=== PATIENT | male | born 1945 | race Caucasian/White ===

== ENCOUNTER 2017-04-12 12:08 | Emergency (ER) | payer MEDICARE ==
[~2017-04-12] VITALS: Ht 167.6 cm; Wt 105.0 kg
[~2017-04-12 12:08] MED LIST: AMLO10TA2 PO; APIX5TAB PO; ASPI81CH CHEW; COLA100C3 PO; EMPA1TAB3 PO; FURO20TA PO; GABA300C5 PO; HYDR25TA35 PO; HYDR25TA5 PO; ISOS30TA3 PO; LANTUS2P SQ; LEVO75TA3 PO; LISI10TA3 PO; MULTTAB67 PO; NOVOLOGP2 SQ; ONDA8TAB8 SL; PLAV75TA29 PO; PROT40TA PO; TAMS5CAP PO; ZETI10TA5 PO
[2017-04-12 12:15] VITALS: BP 168/74; PULSE 70; RESP 18; TEMP 97.6; O2SAT 96
[2017-04-12] MEDS ORDERED: COLA100C PO (13:22)
[2017-04-12] MEDS ORDERED: LANTINJ SQ (13:26)
[2017-04-12] MEDS ORDERED: NOVORP2 SQ (13:27)
[2017-04-12] MEDS ORDERED: NOVOLOGP2 SQ (13:28)
[2017-04-12] MEDS ORDERED: BACT800T5 PO (13:32)
--- NOTE | 2017-04-12 13:32 | PD ---
HPI Chief Complaint: Skin Problem Time Seen by Provider: 13:00 Travel History International Travel<30 days: No Contact w/Intl Traveler<30days: No Traveled to known affect area: No History of Present Illness HPI 72-year-old male presents emergency department for evaluation of possible abscess or inflamed cyst to his left lower back 7 days. Patient reports he noticed a painful swollen area twisted left low back 7 days ago. Today while watching TV he felt drainage on his lower back which he reports was a blood- tinged pus drainage which prompted him to come into the emergency department for evaluation. He reports he's had previous abscess which was cultured out as MRSA several weeks ago. He denies fever or chills. He reports mild tenderness at the site of the abscess, nonradiating, constant. No aggravating or alleviating factors. 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) Cardiac Catheterization: Yes Cardiovascular Problems: Yes (htn; mi; low hr; bypass; stents) High Cholesterol: Yes Chest Pain: Yes Congestive Heart Failure: Yes Cerebrovascular Accident: No Coronary Artery Disease: Yes Diabetes: Yes Patient Takes Glucophage: No Diminished Hearing: No Endocrine: Yes Gastrointestinal Disorders: Yes (reflux) Genitourinary: No Hepatitis: No Hiatal Hernia: No Hypertension: Yes Immune Disorder: No Musculoskeletal: Yes (hx of neck surgery c5-c6 removed) Neurologic: No Psychiatric: No Reproductive: No Respiratory: No Migraines: No Myocardial Infarction: Yes (x 1) Radiation Therapy: No Seizures: No Sleep Apnea: Yes Thyroid Disease: Yes Tetanus Vaccination: < 5 Years Influenza Vaccination: Yes Past Surgical History Abdominal Surgery: Yes (RENAL CELLS CARCINOMA TO KIDNEYS ) AICD: No Arteriovenous Shunt: No Body Medical Devices: x1 cardiac stent Cardiac Surgery: Yes (5 vessel cardiac by-pass with 1 stent) Coronary Artery Bypass Graft: Yes (x 5 vessels) Coronary Stent: Yes (x 1) Ear Surgery: No Eye Surgery: Yes (deuce cataract removal with lense implants) Insulin Pump: No Joint Replacement: No Pacemaker: No Tonsillectomy: Yes Other Surgery: Yes Social History Alcohol Use: Yes (states daily mix drinks wine) Tobacco Use: No (former -quit 47 yrs ago smoked cigs) Substance Use: No Allergies-Medications (Allergen,Severity, Reaction): Coded Allergies: No Known Allergies (Verified , 04/12/17) Reported Meds & Prescriptions Reported Meds & Active Scripts Active Reported Novolog Inj (Insulin Aspart) 1,000 Unit/10 Ml Vial 0 SQ DIRECTED Sliding Scale as directed. Lantus Solostar Pen Inj (Insulin Glargine) 300 Unit/3 Ml Pen 1 Units SQ DAILY Colace (Docusate Sodium) 100 Mg Capsule 1 Cap PO DAILY Ondansetron Odt 8 Mg Tab 8 Mg SL Q8H PRN Jardiance (Empagliflozin) 25 Mg Tab 25 Mg PO DAILY Eliquis (Apixaban) 5 Mg Tab 5 Mg PO BID Multiple Vitamin 1 Tab 1 Tab PO DAILY Furosemide 20 Mg Tab 20 Mg PO BID Gabapentin 300 Mg Cap 300 Mg PO HS Lisinopril 10 Mg Tab 10 Mg PO HS Isosorbide Mononitrate ER (Isosorbide Mononitrate) 30 Mg Bony 30 Mg PO DAILY Flomax (Tamsulosin HCl) 0.4 Mg Cap 0.4 Mg PO HS Amlodipine (Amlodipine Besylate) 10 Mg Tab 10 Mg PO DAILY Zetia (Ezetimibe) 10 Mg Tab 10 Mg PO HS Protonix (Pantoprazole Sodium) 40 Mg Tab 40 Mg PO DAILY Levothyroxine (Levothyroxine Sodium) 75 Mcg Tab 75 Mcg PO DAILY Aspirin 81 Mg Chew 81 Mg CHEW DAILY Review of Systems Except as stated in HPI: all other systems reviewed are Neg General / Constitutional: No: Fever Eyes: No: Visual changes HENT: No: Headaches Cardiovascular: No: Chest Pain or Discomfort Respiratory: No: Shortness of Breath Gastrointestinal: No: Abdominal Pain Physical Exam Narrative GENERAL: Well-nourished, well-developed patient. SKIN: There is an indurated area in the [left low back] which measures about 2 cm cm in diameter. The areas indurated without fluctuance. There is a zone of inflammation around it but no lymphangitis. There is a small central opening losing weight purulent drainage. The drainage was expressed with gentle pressure. HEAD: Normocephalic. EYES: No scleral icterus. No injection or drainage. NECK: Supple, trachea midline. No JVD or lymphadenopathy. CARDIOVASCULAR: Regular rate and rhythm without murmurs, gallops, or rubs. RESPIRATORY: Breath sounds equal bilaterally. No accessory muscle use. GASTROINTESTINAL: Abdomen soft, non-tender, nondistended. MUSCULOSKELETAL: No cyanosis, or edema. BACK: Nontender without obvious deformity. No CVA tenderness. Data Data Last Documented VS Vital Signs Date Time Temp Pulse Resp B/P Pulse Ox O2 Delivery O2 Flow Rate FiO2 04/12/17 13:05 16 04/12/17 12:15 97.6 70 168/74 96 Orders Wound Culture And Gram Stain (04/12/17 13:22) MDM Medical Decision Making Medical Screen Exam Complete: Yes Emergency Medical Condition: Yes Differential Diagnosis Abscess, inflamed sebaceous cyst, cellulitis Narrative Course 72-year-old male with history of previous MRSA infection presents emergency department for evaluation of a possible cyst on his left low back. Patient reports the inflammation and pain has been present for 7 days. The area began to drain spontaneously today. He denies fever or chills. On exam he has a 2 cm indurated area to the left low back with a central opening draining purulent drainage. The area was expressed with gentle pressure. Incision and drainage does not need to be performed my opinion at this time. There is no fluctuance. Wound culture obtained. Patient be put on Bactrim antibiotics instructed faults primary care doctor. Diagnosis Primary Impression: Abscess Referrals: Primary Care Physician Additional Instructions: Take the antibiotics as prescribed. Keep the area covered with a clean dressing which be changed daily. Follow-up with her primary care doctor. Return to the emergency department if he developed new or worsening symptoms. Scripts Mupirocin Nasal Oint (Bactroban Nasal Oint)2% Oint1 Applic EACH NARE BID #1 TUBE Ref 0 For 5 days. Prov:Amy Becerra 04/12/17 Sulfamethoxazole-Trimethoprim (Bactrim DS)800-160 Mg Tab1 Tab PO BID #20 TAB Prov:Amy Becerra 04/12/17 Disposition: 01 DISCHARGE HOME Condition: Stable Amy Becerra Apr 12, 2017 13:32
[2017-04-12] MEDS ORDERED: BACTOIN EACH NARE (13:33)
== END 2017-04-12 13:44 | disposition home or self-care (01) ==
LOC: PHED 12:08
DX: L02.212 Cutaneous abscess of back [any part, except buttock and flank] (principal); A49.02 Methicillin resistant Staphylococcus aureus infection, unspecified site; Z86.14 Personal history of Methicillin resistant Staphylococcus aureus infection; I50.9 Heart failure, unspecified; I11.0 Hypertensive heart disease with heart failure; E11.9 Type 2 diabetes mellitus without complications; K21.9 Gastro-esophageal reflux disease without esophagitis; E78.00 Pure hypercholesterolemia, unspecified; I25.2 Old myocardial infarction; Z95.1 Presence of aortocoronary bypass graft; Z79.01 Long term (current) use of anticoagulants; Z79.82 Long term (current) use of aspirin
CPT/HCPCS: 86403; 87070; 87186; 87205; 99284

== ENCOUNTER 2017-05-04 16:57 | Observation (INO) | payer MEDICARE ==
[~2017-05-04] VITALS: Ht 167.6 cm; Wt 82.0 kg
[~2017-05-04 16:57] MED LIST changes: +BACT800T5 PO; +BACTOIN EACH NARE; +COLA100C PO; -COLA100C3 PO; -HYDR25TA35 PO; -HYDR25TA5 PO; +LANTINJ SQ; -LANTUS2P SQ; -PLAV75TA29 PO
[2017-05-04 17:18] VITALS: BP 188/88; PULSE 67; RESP 18; TEMP 98.6; O2SAT 94
[2017-05-04] MEDS ORDERED: SODIUM CHLOR 0.9% 1000 ML INJ 1,000 ML IV ONE (17:33)
[2017-05-04] MEDS ORDERED: SODIUM CHLORIDE 0.9% FLUSH 10 ML FLUSH IVF PRN (17:45)
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
[2017-05-04] MEDS ORDERED: LIDOCAINE 2%/EPINEPHrine 1:100,000 50ML MDV NERV BLOCK ONE (18:00)
[2017-05-04 18:04] VITALS: O2SAT 96
[2017-05-04] MEDS ORDERED: ONDANSETRON HCL 4 MG/2 ML VIAL ONE (18:12)
--- NOTE | 2017-05-04 18:14 | RADRPT ---
EXAM DATE/TIME: 05/04/2017 17:54 [facility] COMPARISON: CHEST SINGLE AP, July 02, 2016, 12:10. INDICATIONS : Palpitations. MEDICAL HISTORY : Myocardial infarction. Hypercholesterolemia. Congestive heart failure. Thyroiddisease. Hypertension. Anticoagulant therapy, Plavix. Sleep apnea. GERD. Renal cell carcinoma, left. Diabetes. SURGICAL HISTORY : CABG. ENCOUNTER: Initial ACUITY: 1 day PAIN SCORE: 0/10 LOCATION: Bilateral chest FINDINGS: Submaximal inspiration with elevation of both hemidiaphragms. Evidence of prior median sternotomy wi th intact sternal wire sutures. The heart is mildly enlarged, similar to prior. The lungs are clear . CONCLUSION: Submaximal inspiration. No infiltrates seen. Kush Estrada MD on May 04, 2017 at 18:11 Board Certified Radiologist. This report was verified electronically.
[2017-05-04] MEDS ORDERED: ONDANSETRON HCL 4 MG/2 ML VIAL IV PUSH ONE (18:15)
--- NOTE | 2017-05-04 18:29 | RADRPT ---
EXAM DATE/TIME: 05/04/2017 18:04 [facility] COMPARISON: CT BRAIN W/O CONTRAST, July 02, 2016, 13:39. INDICATIONS : Syncopal episode. RADIATION DOSE: 51.02 CTDIvol (mGy) MEDICAL HISTORY : Cardiovascular disease. Congestive heart failure. Diabetes renal cell carcinoma SURGICAL HISTORY : CABG Left kidney ENCOUNTER: Initial ACUITY: 1 day PAIN SCALE: 0/10 LOCATION: cranial TECHNIQUE: Multiple contiguous axial images were obtained of the head. Using automated exposure control and adj ustment of the mA and/or kV according to patient size, radiation dose was kept as low as reasonably a chievable to obtain optimal diagnostic quality images. DICOM format image data is available electro nically for review and comparison. FINDINGS: CEREBRUM: The ventricles are normal for age. No evidence of midline shift, mass lesion, hemorrhage or acute in farction. No extra-axial fluid collections are seen. Cavum septal pellucidum. POSTERIOR FOSSA: The cerebellum and brainstem are intact. The 4th ventricle is midline. The cerebellopontine angle i s unremarkable. EXTRACRANIAL: There is mild soft tissue swelling in the supraorbital region with small collection of gas. No abnor mality seen the adjacent bony orbit. SKULL: The calvaria is intact. No evidence of skull fracture. CONCLUSION: 1. Mild right supraorbital soft tissue swelling with small collection of gas. No fracture seen. 2. No acute findings in the brain. Kush Estrada MD on May 04, 2017 at 18:25 Board Certified Radiologist. This report was verified electronically.
--- NOTE | 2017-05-04 18:38 | PD ---
Physical Exam Date Seen by Provider: May 04, 2017 Time Seen by Provider: 18:34 Narrative I was asked by Dr. Gaytan to see this patient for laceration to the right brow. Please see my procedure note. Data Data Last Documented VS Vital Signs Date Time Temp Pulse Resp B/P (MAP) Pulse Ox O2 Delivery O2 Flow Rate FiO2 05/04/17 18:04 96 Room Air 05/04/17 17:18 98.6 67 18 Orders Orders Electrocardiogram (05/04/17 17:33) Complete Blood Count With Diff (05/04/17 17:33) Comprehensive Metabolic Panel (05/04/17 17:33) Magnesium (Mg) (05/04/17 17:33) Troponin I (05/04/17 17:33) Chest, Single Ap (05/04/17 17:33) Ct Brain W/O Iv Contrast(Rout) (05/04/17 17:33) Ecg Monitoring (05/04/17 17:33) Iv Access Insert/Monitor (05/04/17 17:33) Oximetry (05/04/17 17:33) Sodium Chloride 0.9% Flush (Ns Flush) (05/04/17 17:45) Sodium Chlor 0.9% 1000 Ml Inj (Ns 1000 M (05/04/17 17:33) Lidocai-Epi 2%-1:100,000 Inj (Xylocaine- (05/04/17 18:00) Ondansetron Inj (Zofran Inj) (05/04/17 18:15) Ondansetron Inj (Zofran Inj) (05/04/17 18:12) Labs Laboratory Tests Test 05/04/17 17:40 [facility] Medical Record Reviewed: Yes Supervised Visit with MEGHNA: Yes Procedures Procedure Narrative LACERATION LOCATION: Right lateral brow LENGTH: 3.5 cm NUMBER OF STITCHES/SARAVANAN: 1 vertical mattress, 3 interrupted horizontal mattress, one interrupted simple sutures REPAIR: The area of the laceration was prepped with Betadine and sterilely draped. The laceration was infiltrated with 4 mL was 1% lidocaine. The wound was copiously irrigated and explored without evidence of foreign body, tendon injury or neurovascular injury. The wound was closed using 5-0 Prolene. This was a single layer repair. Antibiotic ointment was applied. The patient was advised to keep the wound clean and dry. Patient to have sutures remain for at least 7 days. Patient tolerated the procedure well. Condition: Stable Doc Mendez May 04, 2017 18:38
[2017-05-04 18:39] LABS: AUTOMATED NEUTROPHIL # 5.3 TH/MM3 (1.8-7.7); BASOPHIL # 0.1 TH/MM3 (0-0.2); EOSINOPHIL # 0.1 TH/MM3 (0-0.4); HEMATOCRIT 37.7 % (39.0-51.0); HEMO FLAGS DIFF FINAL; LYMPH % 25.7 % (9.0-44.0); LYMPHOCYTE # 2.2 TH/MM3 (1.0-4.8); MEAN CELL VOLUME 93.8 FL (80.0-100.0); MEAN CORPUSCULAR HEMOGLOBIN 32.2 PG (27.0-34.0); MEAN CORPUSCULAR HGB CONC 34.4 % (32.0-36.0); MONO % 9.9 % (0.0-8.0); NEUT % 62.4 % (16.0-70.0); PLATELET COUNT 184 TH/MM3 (150-450); RED BLOOD COUNT 4.02 MIL/MM3 (4.50-5.90); RED CELL DISTRIBUTION WIDTH 13.3 % (11.6-17.2); WHITE BLOOD COUNT 8.5 TH/MM3 (4.0-11.0)
[2017-05-04 18:44] VITALS: BP 210/81; PULSE 65; RESP 18; O2SAT 97
[2017-05-04 18:59] LABS: AST (GOT) 29 U/L (15-37); BICARBONATE 26.6 MEQ/L (21.0-32.0); BLOOD UREA NITROGEN 30 MG/DL (7-18); GLOMERULAR FILTRATION RATE 36 ML/MIN (>89); MAGNESIUM 2.1 MG/DL (1.5-2.5)
[2017-05-04 19:00] LABS: ALT (GPT) 35 U/L (12-78)
--- NOTE | 2017-05-04 19:36 | PD ---
Physical Exam Narrative General: The patient is well-developed well-nourished male in no acute distress. Head and Neck exam: Head is normocephalic, evidence of trauma to the right side of the forehead with a laceration that has been sutured noted above the right eyebrow. Eyes: EOMI, pupils are equal round and reactive to light. Nose: Midline septum with pink mucous membranes Mouth: Dentition unremarkable. Moist mucus membranes. Posterior oropharynx is not erythematous. No tonsillar hypertrophy. Uvula midline. Airway patent. Neck: No palpable lymphadenopathy. No nuchal rigidity. No thyromegaly. Cardiovascular: Regular rate and rhythm without murmurs, gallops, or rubs. No pulse deficit to the extremities and simultaneous auscultation and palpation of his radial artery. Lungs: Clear to auscultation bilaterally. No wheezes, rhonchi, or rales. Abdomen: Soft, without tenderness to palpation in all 4 quadrants of the abdomen. No guarding, rebound, or rigidity. Normal bowel sounds are audible. No tenderness on palpation of McBurney's point. Extremities: No Clubbing or cyanosis noted. The patient has trace to 1+ pitting edema bilateral lower extremities. 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 Back: No costovertebral angle tenderness to palpation. Neurologic Exam: Cranial nerves 2-12 were intact on exam. Strength is 5/5 in all 4 extremities. No sensory deficits noted. Skin Exam: No rash noted. Data Data Last Documented VS Vital Signs Date Time Temp Pulse Resp B/P (MAP) Pulse Ox O2 Delivery O2 Flow Rate FiO2 05/04/17 19:59 68 20 170/71 (104) 98 Room Air 05/04/17 17:18 98.6 Orders Orders Electrocardiogram (05/04/17 17:33) Complete Blood Count With Diff (05/04/17 17:33) Comprehensive Metabolic Panel (05/04/17 17:33) Magnesium (Mg) (05/04/17 17:33) Troponin I (05/04/17 17:33) Chest, Single Ap (05/04/17 17:33) Ct Brain W/O Iv Contrast(Rout) (05/04/17 17:33) Ecg Monitoring (05/04/17 17:33) Iv Access Insert/Monitor (05/04/17 17:33) Oximetry (05/04/17 17:33) Sodium Chloride 0.9% Flush (Ns Flush) (05/04/17 17:45) Sodium Chlor 0.9% 1000 Ml Inj (Ns 1000 M (05/04/17 17:33) Lidocai-Epi 2%-1:100,000 Inj (Xylocaine- (05/04/17 18:00) Ondansetron Inj (Zofran Inj) (05/04/17 18:15) Ondansetron Inj (Zofran Inj) (05/04/17 18:12) Alcohol (Ethanol) (05/04/17 18:49) Admit Order (Ed Use Only) (05/04/17 20:11) Labs Laboratory Tests Test 05/04/17 17:40 White Blood Count 8.5 TH/MM3 Red Blood Count 4.02 MIL/MM3 Hemoglobin 12.9 GM/DL Hematocrit 37.7 % Mean Corpuscular Volume 93.8 FL Mean Corpuscular Hemoglobin 32.2 PG Mean Corpuscular Hemoglobin Concent 34.4 % Red Cell Distribution Width 13.3 % Platelet Count 184 TH/MM3 Mean Platelet Volume 9.8 FL Neutrophils (%) (Auto) 62.4 % Lymphocytes (%) (Auto) 25.7 % Monocytes (%) (Auto) 9.9 % Eosinophils (%) (Auto) 1.0 % Basophils (%) (Auto) 1.0 % Neutrophils # (Auto) 5.3 TH/MM3 Lymphocytes # (Auto) 2.2 TH/MM3 Monocytes # (Auto) 0.8 TH/MM3 Eosinophils # (Auto) 0.1 TH/MM3 Basophils # (Auto) 0.1 TH/MM3 CBC Comment DIFF FINAL Differential Comment Blood Urea Nitrogen 30 MG/DL Creatinine 1.85 MG/DL Random Glucose 217 MG/DL Total Protein 6.2 GM/DL Albumin 2.5 GM/DL Calcium Level 8.1 MG/DL Magnesium Level 2.1 MG/DL Alkaline Phosphatase 73 U/L Aspartate Amino Transf (AST/SGOT) 29 U/L Alanine Aminotransferase (ALT/SGPT) 35 U/L Total Bilirubin 0.2 MG/DL Sodium Level 139 MEQ/L Potassium Level 4.4 MEQ/L Chloride Level 105 MEQ/L Carbon Dioxide Level 26.6 MEQ/L Anion Gap 7 MEQ/L Estimat Glomerular Filtration Rate 36 ML/MIN Troponin I 0.02 NG/ML Ethyl Alcohol Level 176 MG/DL [facility] Medical Record Reviewed: Yes Supervised Visit with MEGHNA: No Interpretation(s) Last Impressions Head CT 05/04/171732 Signed Impressions: Service Date/Time: Thursday, May 04, 2017 18:04 - CONCLUSION: 1. Mild right supraorbital soft tissue swelling with small collection of gas. No fracture seen. 2. No acute findings in the brain. Kush Estrada MD Chest X-Ray 05/04/171732 Signed Impressions: Service Date/Time: Thursday, May 04, 2017 17:54 - CONCLUSION: Submaximal inspiration. No infiltrates seen. Kush Estrada MD Narrative Course During the course of the patients emergency department visit, the patients history, examination, and differential diagnosis were reviewed with the patient. The patient had IV access obtained and blood work sent for analysis. The patient's case is checked out to me by Dr. Gaytan at the conclusion of his shift. Please see his complete history and physical. The patient is a 72-year- old male who presents to [facility] emergency Department with a history of syncopal event prior to arrival. The patient presents with an ECG that shows what appears to be a first-degree heart block heart rate of 63, QRS duration is 148 ms, QTC 416 ms, right bundle branch block is noted. The patient does have a history of complete heart block which resolved after medication changes previously. The patient was initially provided Zofran 4 mg IV, normal saline 1 L IV fluid bolus. The patients laboratory studies were reviewed and remarkable for a CBC that shows a white count of 8.5, hemoglobin 12.9, platelets 184 with 9.9 monocytes. CMP is remarkable for a BUN of 30, creatinine 1.85, glucose 217, albumin 2.5 this is compared to his prior renal function studies done on July 07, 2016. The patient apparently does have a history of renal insufficiency with his last BUN 26, creatinine 1.67. Patient's alcohol level is 176. Radiology studies were reviewed and remarkable for a CT scan of the brain that shows a mild right supraorbital soft tissue swelling with small collection of gas, no fracture seen. No acute findings in the brain. Chest x-ray shows no acute abnormality, submaximal inspiratory effort, no infiltrates seen. The patients results were discussed with the patient, including the plan of care. I explained that further testing and/ or monitoring is indicated based on the patients history, examination, and/ or laboratory findings. Therefore, I recommended admission for additional evaluation. The patient expressed understanding and was agreeable with this plan. The patient was admitted to the hospital in stable condition and sent to a bed under the care of the [facility] service for Physician Communication Physician Communication The patient's case was discussed with Dr. Dolan who did agree to admit the patient for further evaluation and treatment at this time. Diagnosis Primary Impression: Syncope and collapse Additional Impressions: Alcohol intoxication Qualified Codes: F10.929 - Alcohol use, unspecified with intoxication, unspecified Head injury Qualified Codes: S09.90XA - Unspecified injury of head, initial encounter Admitting Information Admitting Physician Requests: Admit Condition: Stable Aure Ritter MD May 04, 2017 19:36
[2017-05-04 19:45] LABS: ALKALINE PHOSPHATASE 73 U/L (45-117); ANION GAP 7 MEQ/L (5-15); CHLORIDE 105 MEQ/L (98-107); POTASSIUM 4.4 MEQ/L (3.5-5.1); SODIUM (NA) 139 MEQ/L (136-145); TOTAL BILIRUBIN ADULT 0.2 MG/DL (0.2-1.0)
[2017-05-04 19:59] VITALS: BP 170/71; PULSE 68; RESP 20; O2SAT 98
[2017-05-04] MEDS ORDERED: SODIUM CHLORIDE 0.9% FLUSH 10 ML FLUSH IV FLUSH PRN (20:30)
[2017-05-04] MEDS ORDERED: NALOXONE HCL 0.4 MG/ML AMP IV PRN (20:30)
[2017-05-04] MEDS: SODIUM CHLORIDE 0.9% FLUSH 10 ML FLUSH IV FLUSH SCH (21:08)
[2017-05-04] MEDS ORDERED: ACETAMINOPHEN 325 MG TAB PO PRN (22:00)
[2017-05-04 22:09] VITALS: BP 187/84; PULSE 69; RESP 19; TEMP 98.2; O2SAT 97
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
[2017-05-05] VITALS (8 sets, daily range): BP systolic 174–218; BP diastolic 70–96; PULSE 63–92; RESP 18–20; TEMP 97.8–98.3; O2SAT 95–97
[2017-05-05] MEDS ORDERED: LISINOPRIL 20 MG TAB PO ONE (01:00)
[2017-05-05] MEDS ORDERED: ACETAMINOPHEN/HYDROcodone 325 MG/5 MG TAB PO PRN (01:00)
[2017-05-05] MEDS ORDERED: LEVOTHYROXINE SODIUM 75 MCG TAB PO SCH (06:00)
[2017-05-05] MEDS ORDERED: PANTOPRAZOLE SOD 40 MG DELAYED RELEASE TAB PO SCH (06:00)
[2017-05-05] MEDS: SODIUM CHLORIDE 0.9% FLUSH 10 ML FLUSH IV FLUSH SCH (08:11)
[2017-05-05] MEDS ORDERED: APIXABAN 5 MG TABLET PO SCH (09:00)
[2017-05-05] MEDS ORDERED: ISOSORBIDE MONONITRATE 30 MG TAB PO SCH (09:00)
[2017-05-05] MEDS ORDERED: ASPIRIN 81 MG CHEW TAB CHEW SCH (09:00)
[2017-05-05] MEDS ORDERED: FUROSEMIDE 20 MG TAB PO SCH (09:00)
[2017-05-05] MEDS ORDERED: DEXTROSE 50% IN WATER 50 ML VIAL(D50) IV PRN (09:45)
[2017-05-05] MEDS ORDERED: GLUCAGON 1 MG/ML VIAL OTHER PRN (09:45)
[2017-05-05] MEDS ORDERED: INSULIN ASPART SUPPLEMENTAL SCALE SQ SCH (11:00)
[2017-05-05 12:38] LABS: AUTOMATED NEUTROPHIL # 7.8 TH/MM3 (1.8-7.7); BASOPHIL # 0.1 TH/MM3 (0-0.2); BASOPHIL % 0.7 % (0.0-2.0); EOSINOPHIL # 0.1 TH/MM3 (0-0.4); EOSINOPHIL % 0.5 % (0.0-4.0); HEMATOCRIT 41.7 % (39.0-51.0); HEMO FLAGS DIFF FINAL; LYMPH % 17.6 % (9.0-44.0); MEAN CELL VOLUME 94.2 FL (80.0-100.0); MEAN CORPUSCULAR HEMOGLOBIN 30.9 PG (27.0-34.0); MEAN CORPUSCULAR HGB CONC 32.8 % (32.0-36.0); MONO % 11.9 % (0.0-8.0); NEUT % 69.3 % (16.0-70.0); PLATELET COUNT 220 TH/MM3 (150-450); RED BLOOD COUNT 4.43 MIL/MM3 (4.50-5.90); RED CELL DISTRIBUTION WIDTH 13.6 % (11.6-17.2); WHITE BLOOD COUNT 11.2 TH/MM3 (4.0-11.0)
--- NOTE | 2017-05-05 12:44 | EKG ---
Date Performed: 05/05/2017 Time Performed: 06:30:27 PTAGE: 72 years EKG: Sinus rhythm WITH FIRST DEGREE AV BLOCK RIGHT BUNDLE BRANCH BLOCK ABNORMAL ECG PREVIOUS TRACING : 05/05/2017 00.39 DOCTOR: Jan Ray Interpretating Date/Time 05/05/2017 12:42:18
--- NOTE | 2017-05-05 12:48 | EKG ---
Date Performed: 05/05/2017 Time Performed: 00:39:47 PTAGE: 72 years EKG: Sinus rhythm WITH 2ND DEGREE AV BLOCK, MOBITZ TYPE I (WENCKEBACH) RIGHT BUNDLE BRANCH BLOCK ABNORMAL ECG PREVIOUS TRACING : 05/04/2017 17.43 DOCTOR: Jan Ray Interpretating Date/Time 05/05/2017 12:44:24
--- NOTE | 2017-05-05 12:53 | EKG ---
Date Performed: 05/04/2017 Time Performed: 17:43:45 PTAGE: 72 years EKG: UNCERTAIN REGULAR RHYTHM RIGHT BUNDLE BRANCH BLOCK MODERATE T-WAVE ABNORMALITY, CONSIDER LA TERAL ISCHEMIA ABNORMAL ECG PREVIOUS TRACING : 07/02/2016 11.41 DOCTOR: Jan Ray Interpretating Date/Time 05/05/2017 12:47:50
[2017-05-05 12:58] LABS: BICARBONATE 27.6 MEQ/L (21.0-32.0); POTASSIUM 4.6 MEQ/L (3.5-5.1)
--- NOTE | 2017-05-05 13:41 | HHI.PR ---
Subjective Remarks Follow up for syncope, fall. Patient is doing well. No chest pain, SOB, fever, chills. No further syncopal episodes. Wants to go home. Objective Vitals Vital Signs Date Time Temp Pulse Resp B/P (MAP) Pulse Ox O2 Delivery O2 Flow Rate FiO2 05/05/17 13:15 175/70 (105) 05/05/17 09:30 180/76 (110) Automatic Cuff 05/05/17 09:16 98.3 63 20 218/88 (131) 97 05/05/17 08:15 63 05/05/17 04:25 98.3 91 18 174/82 (112) 95 05/05/17 04:20 92 05/05/17 02:37 18 05/05/17 00:21 75 05/05/17 00:10 97.8 79 18 214/96 (135) 95 05/04/17 22:09 98.2 69 19 187/84 (118) 97 05/04/17 21:16 05/04/17 19:59 68 20 170/71 (104) 98 Room Air 05/04/17 18:44 65 18 210/81 (124) 97 Room Air 05/04/17 18:04 96 Room Air 05/04/17 17:18 98.6 67 18 188/88 (121) 94 Room Air 05/04/17 17:18 73 18 94 Room Air I/O 05/04/17 05/04/17 05/04/17 05/05/17 05/05/17 05/05/17 06:59 14:59 22:59 06:59 14:59 22:59 Intake Total 1000 ml Output Total 350 ml Balance 650 ml Intake IV Total 1000 ml Output Urine Total 350 ml # Voids 2 Result Diagram: 05/05/17 1200 05/05/17 1200 Imaging Last Impressions Head CT 05/04/171732 Signed Impressions: Service Date/Time: Thursday, May 04, 2017 18:04 - CONCLUSION: 1. Mild right supraorbital soft tissue swelling with small collection of gas. No fracture seen. 2. No acute findings in the brain. Kush Estrada MD Chest X-Ray 05/04/171732 Signed Impressions: Service Date/Time: Thursday, May 04, 2017 17:54 - CONCLUSION: Submaximal inspiration. No infiltrates seen. Kush Estrada MD Objective Remarks GENERAL: AOX3, NAD SKIN: Warm and dry. HEAD: Normocephalic.A small laceration on the right side. EYES: No scleral icterus. No injection or drainage. NECK: Supple, trachea midline. No JVD or lymphadenopathy. CARDIOVASCULAR: Regular rate and rhythm without murmurs, gallops, or rubs. RESPIRATORY: Breath sounds equal bilaterally. No accessory muscle use. GASTROINTESTINAL: Abdomen soft, non-tender, nondistended. MUSCULOSKELETAL: No cyanosis, or edema. BACK: Nontender without obvious deformity. No CVA tenderness. A/P Problem List: (1) Syncope and collapse ICD Code: R55 - Syncope and collapse Status: Acute (2) Alcohol intoxication ICD Code: F10.929 - Alcohol use, unspecified with intoxication, unspecified Status: Acute (3) Head injury ICD Code: S09.90XA - Unspecified injury of head, initial encounter Status: Acute Assessment and Plan 72 y/o male who presented to the ED after syncopal episode with collapse Syncope and collapse- likely secondary to wine - serial cardiac enzymes and EKGs - unremarkable. - continuous cardiac telemetry to monitor for arrhythmia - nuclear stress test and echo within the past year - states EF is 55% - monitor neuro checks and vital signs q 4 h - suspect syncopal episode is secondary to alcohol intoxication - ETOH level 176 in ED History of MRSA - contact isolation Head injury following fall - laceration sutured in ED - CT scan with mild right supraorbital soft tissue swelling with small collection of gas. No fracture seen. No acute findings in the brain. Hypertension - Continue home medications. Patient will monitor BP at home. IF elevated, he will discuss with his PCP. At the time of discharge, his systolic BP was 170s DVT prophylaxis - continue home Eliquis Discharge patient to home Condition on discharge: Improved Heart healthy Diet as tolerated Ad Lindsay activity Rx written: None Follow-up with primary care physician within one week. Problem Qualifiers (1) Alcohol intoxication: Qualified Codes: F10.929 - Alcohol use, unspecified with intoxication, unspecified (2) Head injury: Qualified Codes: S09.90XA - Unspecified injury of head, initial encounter Delfina Kitchen DO May 05, 2017 13:41
[2017-05-05] MEDS ORDERED: GABAPENTIN 300 MG CAP PO SCH (21:00)
[2017-05-05] MEDS ORDERED: LISINOPRIL 10 MG TAB PO SCH (21:00)
[2017-05-05] MEDS ORDERED: TAMSULOSIN HCL 0.4 MG CAP PO SCH (21:00)
[2017-05-05] MEDS ORDERED: EZETIMIBE 10 MG TAB PO SCH (21:00)
== END 2017-05-05 14:42 | disposition home or self-care (01) ==
LOC: NEPC 16:57 → NEDA 20:13 → NEPHCDU 21:36
PROVIDERS: ADMIT Hospitalist; ATTEND Hospitalist
DX: S01.81XA Laceration without foreign body of other part of head, initial encounter (principal); R55 Syncope and collapse; I25.10 Atherosclerotic heart disease of native coronary artery without angina pectoris; I44.0 Atrioventricular block, first degree; E11.9 Type 2 diabetes mellitus without complications; E78.5 Hyperlipidemia, unspecified; F10.129 Alcohol abuse with intoxication, unspecified; G47.33 Obstructive sleep apnea (adult) (pediatric); I10 Essential (primary) hypertension; E03.9 Hypothyroidism, unspecified; R32 Unspecified urinary incontinence; Z95.1 Presence of aortocoronary bypass graft; Z95.5 Presence of coronary angioplasty implant and graft; Z87.891 Personal history of nicotine dependence; Z86.14 Personal history of Methicillin resistant Staphylococcus aureus infection; Z85.528 Personal history of other malignant neoplasm of kidney; Z79.4 Long term (current) use of insulin
CPT/HCPCS: 12013; 70450; 71010; 80048; 80053; 80307; 82550; 82552; 82948; 83735; 84484; 85025; 93005; 96361; 96372; 96374; 99285; G0378; J1815; J2405; J7030

== ENCOUNTER 2017-05-17 10:30 | Inpatient (IN) | payer MEDICARE ==
[~2017-05-17] VITALS: Ht 167.6 cm; Wt 99.8 kg
[2017-06-07] VITALS (10 sets, daily range): BP systolic 137–168; BP diastolic 60–77; PULSE 54–66; RESP 19; TEMP 97.3–97.8; O2SAT 98–100
[2017-06-07] MEDS ORDERED: SODIUM CHLORID 0.9% 500 ML IV PRN (07:45)
[2017-06-07] MEDS ORDERED: INSULIN HUMAN REGULAR 1,000 UNITS/10 ML VIAL SQ PRN (07:45)
[2017-06-07] MEDS ORDERED: POVIDONE IODINE 5% (ANTISEPSIS KIT) 4 APPLICATIONS EACH NARE PRN (07:45)
[2017-06-07] MEDS ORDERED: LACTATED RINGER'S 1000 ML IV PRN (07:45)
[2017-06-07] MEDS ORDERED: METOPROLOL TARTRATE 25 MG TAB PO PRN (07:45)
[2017-06-07] MEDS ORDERED: CHLORHEXIDINE GLUCONATE 2 % 1 PACK (2 CLOTHS) TOPICAL PRN (07:45)
[2017-06-07 07:51] LABS: AUTOMATED NEUTROPHIL # 5.5 TH/MM3 (1.8-7.7); BASOPHIL # 0.1 TH/MM3 (0-0.2); BASOPHIL % 0.9 % (0.0-2.0); EOSINOPHIL # 0.1 TH/MM3 (0-0.4); EOSINOPHIL % 1.5 % (0.0-4.0); HEMATOCRIT 38.6 % (39.0-51.0); LYMPH % 22.2 % (9.0-44.0); LYMPHOCYTE # 1.9 TH/MM3 (1.0-4.8); MEAN CELL VOLUME 93.4 FL (80.0-100.0); MEAN CORPUSCULAR HEMOGLOBIN 31.5 PG (27.0-34.0); MEAN CORPUSCULAR HGB CONC 33.8 % (32.0-36.0); MONO % 10.6 % (0.0-8.0); NEUT % 64.8 % (16.0-70.0); PLATELET COUNT 193 TH/MM3 (150-450); RED BLOOD COUNT 4.14 MIL/MM3 (4.50-5.90); RED CELL DISTRIBUTION WIDTH 13.6 % (11.6-17.2); WHITE BLOOD COUNT 8.5 TH/MM3 (4.0-11.0)
[2017-06-07] MEDS ORDERED: BUPIVACAINE/EPINEPHRINE 0.5% 50 ML VIAL ONE (07:54)
[2017-06-07] MEDS ORDERED: HEPARIN SODIUM - SQ 10,000 UNITS/ML VIAL ONE (07:54)
[2017-06-07 07:55] LABS: HEMO FLAGS AUTO DIFF
[2017-06-07 07:58] LABS: APTT (PATIENT) 27.2 SEC (24.3-30.1); INTERNATIONAL NORMALIZED RATIO 0.9 RATIO; PROTHROMBIN TIME - PATIENT 10.2 SEC (9.8-11.6)
[2017-06-07] MEDS ORDERED: SULF1TAB23 PO (08:01)
[2017-06-07] MEDS ORDERED: PRIL20TA2 PO (08:01)
[2017-06-07 08:09] LABS: BICARBONATE 25.1 MEQ/L (21.0-32.0); POTASSIUM 4.5 MEQ/L (3.5-5.1)
[2017-06-07] MEDS: ceFAZolin 1,000 MG/NS 100 ML IV SCH ×4 (08:24→08:27)
[2017-06-07 08:30] LABS: PLATELET ESTIMATE SMEAR NORMAL (NORMAL); PLATELET MORPHOLOGY NORMAL (NORMAL); SCAN/DIFF AUTO DIFF CONFIRMED
[2017-06-07] MEDS ORDERED: MIDAZOLAM HCL 2 MG/2 ML VIAL ONE (08:32)
[2017-06-07] MEDS ORDERED: FAMOTIDINE 20 MG/2 ML VIAL ONE (08:33)
[2017-06-07] MEDS ORDERED: SUGAMMADEX SODIUM 200 MG/2 ML VIAL IV PUSH ONE ×2 (08:47)
[2017-06-07] MEDS ORDERED: DEXMEDETOMIDINE HCL 200 MCG/2 ML VIAL ONE (08:48)
[2017-06-07] MEDS ORDERED: HEPARIN SODIUM - IV 10,000 UNITS/10 ML VIAL ONE ×2 (08:57)
[2017-06-07] MEDS ORDERED: PROTAMINE SULFATE 50 MG/5 ML VIAL ONE (08:57)
[2017-06-07] MEDS ORDERED: VANCOMYCIN HCL 1000 MG VIAL ONE (09:59)
[2017-06-07] MEDS ORDERED: IOHEXOL IV ONE (11:27)
[2017-06-07] MEDS ORDERED: ePHEDrine/NS 25 MG/5 ML SYR IV ONE (12:00)
[2017-06-07] MEDS ORDERED: PROPOFOL 200 MG/20 ML AMP IV ONE (12:00)
[2017-06-07] MEDS ORDERED: ROCURONIUM INJ 50 MG/5 ML SYRINGE IV PUSH ONE (12:00)
[2017-06-07] MEDS ORDERED: NORMOSOL R INJ 1,000 ML IV ONE (12:00)
[2017-06-07] MEDS ORDERED: SUCCINYLCHOLINE CHLORIDE 100 MG/5 ML SYRINGE IV PUSH ONE (12:00)
[2017-06-07] MEDS ORDERED: LIDOCAINE HCL 1% PF 5 ML AMPULE OTHER ONE (12:00)
[2017-06-07] MEDS ORDERED: PHENYLEPH/NS 1000 MCG/10 ML SYR IV ONE (12:00)
[2017-06-07] MEDS ORDERED: ONDANSETRON HCL 4 MG/2 ML VIAL IV PUSH ONE (12:00)
[2017-06-07] MEDS ORDERED: *morphine SULFATE 8 MG/ML PERIprocedure ONLY ONE ×2 (13:41→14:04)
[2017-06-07] MEDS ORDERED: POTASSIUM PHOSPHATE 21 MMOL/NS 250 ML IV PRN ×2 (14:15)
[2017-06-07] MEDS ORDERED: POTASSIUM CHLOR 20 MEQ 100 ML x 2 BAGS IV PRN (14:15)
[2017-06-07] MEDS ORDERED: POTASSIUM CHLOR 20 MEQ/100 ML x 1 BAG IV PRN (14:15)
[2017-06-07] MEDS ORDERED: MORPHINE SULFATE 4 MG/ML INJ IV PUSH PRN ×2 (14:15→14:30)
[2017-06-07] MEDS ORDERED: ONDANSETRON HCL 4 MG/2 ML VIAL IV PUSH PRN (14:15)
[2017-06-07] MEDS ORDERED: MAGNESIUM SULFATE 1 GM/100 ML IV PRN (14:15)
[2017-06-07] MEDS ORDERED: SODIUM CHLORIDE 0.9% FLUSH 10 ML FLUSH IV FLUSH PRN (14:15)
[2017-06-07] MEDS ORDERED: DO NOT ADM ANY ANTICOAGULANT DRUGS PRN (14:15)
[2017-06-07] MEDS ORDERED: *HYDROmorphone PF 1 MG VIAL PERIprocedural Use ONLY ONE (14:23)
[2017-06-07] MEDS ORDERED: ACETAMINOPHEN/HYDROcodone 325 MG/5 MG TAB PO PRN (14:30)
[2017-06-07] MEDS ORDERED: DEXTROSE 50% IN WATER 50 ML VIAL(D50) IV PUSH PRN (16:00)
[2017-06-07] MEDS ORDERED: GLUCAGON 1 MG/ML VIAL OTHER PRN (16:00)
[2017-06-07] MEDS ORDERED: PLEASE DISCONTINUE PREVIOUS SUPPLEMENTAL SCALE INSULIN ORDERS ONE (16:00)
[2017-06-07] MEDS ORDERED: ONDANSETRON ODT 4 MG TAB SL PRN (16:30)
[2017-06-07] MEDS: MEDIUM DOSE INSULIN NOVOLIN REGULAR SUPPLEMENTAL SCALE SQ SCH ×2 (17:51→23:44)
[2017-06-07] MEDS: FUROSEMIDE 20 MG TAB PO SCH (19:57)
[2017-06-07] MEDS: SODIUM CHLORIDE 0.9% FLUSH 10 ML FLUSH IV FLUSH SCH (20:46)
[2017-06-07] MEDS ORDERED: LISINOPRIL 10 MG TAB PO SCH (21:00)
[2017-06-07] MEDS ORDERED: EZETIMIBE 10 MG TAB PO SCH (21:00)
[2017-06-07] MEDS ORDERED: TAMSULOSIN HCL 0.4 MG CAP PO SCH (21:00)
[2017-06-07] MEDS ORDERED: GABAPENTIN 300 MG CAP PO SCH (21:00)
--- NOTE | 2017-06-07 22:31 | MP ---
cc: JO LEWIS DATE OF SURGERY 06/07/17 PREOPERATIVE DIAGNOSIS Limb threatening left lower extremity ischemia. POSTOPERATIVE DIAGNOSIS Limb threatening left lower extremity ischemia. PROCEDURE Left femoral endarterectomy with bovine patch angioplasty. SURGEON Bharti Lewis MD [employer]OP[employer] OFFICER HATTIE Curtis ANESTHESIA LMA/local HISTORY This 72-year-old hypertensive type 2 diabetic male with dyslipidemia presented with progressively disabling left calf claudication and recent onset of ischemic rest pain left foot. 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 Iliac inflow and femoral-popliteal outflow otherwise was relatively non-diseased. DESCRIPTION OF PROCEDURE With the patient in the supine position and under LMA, the lower abdomen, both groins and the left lower extremity were prepped with Betadine and draped in a sterile fashion. One gram of vancomycin was administered prophylactically and, following a protocol time-out, the skin and subcutaneous tissue along the proposed incisional area was preemptively infiltrated with 0.5% Marcaine with epinephrine. A hockey stick shaped incision was performed within the left thigh and groin area through which the distal external iliac, the entire common and proximal superficial and profunda femoral arteries were circumferentially mobilized. The SFA was mobilized several centimeters distally. The common femoral artery was cannulated with an 18-gauge butterfly needle. Diluted contrast was injected in conjunction with digital C-arm fluoroscopic imaging. This confirmed atherosclerotic occlusion of the mid and distal common femoral artery. The occlusion extended into the proximal SFA. The profunda and SFA reconstituted. The SFA from the mid thigh throughout the adductor level, the popliteal and anterior tibial, peroneal arteries were widely patent. The patient was systemically heparinized with 5000 units. The external iliac artery was occluded with a small Satinsky clamp, the profunda and SFA occluded with double loop vessel loops. A vertical arteriotomy was performed from the external iliac common femoral junction and extended several centimeters onto the anterior surface of the SFA. The occluding atherosclerotic plaque was cleanly and completely endarterectomized. Care was taken to ensure secure intimal points within the profunda and SFA. A bovine patch was secured to the endarterectomy incision with continuous 6-0 Prolene. Prior to placement of the final sutures, the arterial lumen was appropriately flushed, final sutures placed and tied. Pulsatile flow was reestablished into the SFA and profunda as confirmed by Doppler signal. Heparin was reversed with protamine. Strict hemostasis was assured. The incision was closed with three separate layers of continuous 4-0 Monocryl. Skin was reapproximated with continuous subcuticular 5-0 Monocryl, reinforced with Steri-Strips. A Prevena vacuum dressing was applied. There were no operative complications. Instrument, needle and sponge count were correct x2. The patient returned to Post Anesthesia in stable condition having tolerated procedure well. Jo Lewis MD JTS/ /6:32 PM /10:18 PM
[2017-06-07] MEDS: ACETAMINOPHEN 325 MG TAB PO PRN (23:40)
[2017-06-08] VITALS (16 sets, daily range): BP systolic 120–125; BP diastolic 57–60; PULSE 54–74; RESP 19; TEMP 97.8–98.1; O2SAT 96–98
[2017-06-08] MEDS ORDERED: LEVOTHYROXINE SODIUM 75 MCG TAB PO SCH (06:00)
[2017-06-08] MEDS: MEDIUM DOSE INSULIN NOVOLIN REGULAR SUPPLEMENTAL SCALE SQ SCH ×2 (08:00→12:19)
[2017-06-08] MEDS ORDERED: PANTOPRAZOLE SOD 20 MG DELAYED RELEASE TAB PO SCH (09:00)
[2017-06-08] MEDS ORDERED: SULFAMETHOXAZOLE-TRIMETHOPRIM DS 800-160 MG TAB PO SCH (09:00)
[2017-06-08] MEDS ORDERED: ASPIRIN 81 MG CHEW TAB PO SCH (09:00)
[2017-06-08] MEDS ORDERED: ISOSORBIDE MONONITRATE 30 MG TAB PO SCH (09:00)
[2017-06-08] MEDS ORDERED: DOCUSATE SODIUM 100 MG CAP PO SCH (09:00)
[2017-06-08] MEDS ORDERED: INSULIN DETEMIR 100 UNITS/ML VIAL SQ SCH (09:00)
[2017-06-08] MEDS: ACETAMINOPHEN 325 MG TAB PO PRN (09:32)
[2017-06-08] MEDS: SODIUM CHLORIDE 0.9% FLUSH 10 ML FLUSH IV FLUSH SCH (09:33)
[2017-06-08] MEDS: FUROSEMIDE 20 MG TAB PO SCH (09:34)
[2017-06-08] MEDS ORDERED: TYLE325T PO (12:23)
== END 2017-06-08 13:43 | disposition home or self-care (01) | DRG 254 ==
LOC: HSDI 06-07 06:50 → HCPC 06-07 16:40
PROVIDERS: ADMIT Surgery Vascular Surgery; ATTEND Surgery Vascular Surgery
PROC: 04CL0ZZ Extirpation of Matter from Left Femoral Artery, Open Approach (ICD-10-PCS; principal; 2017-06-07 08:53)
DX: I77.1 Stricture of artery (principal); E11.9 Type 2 diabetes mellitus without complications; I10 Essential (primary) hypertension; I73.9 Peripheral vascular disease, unspecified; I25.2 Old myocardial infarction; Z95.1 Presence of aortocoronary bypass graft; Z95.5 Presence of coronary angioplasty implant and graft; Z87.891 Personal history of nicotine dependence; E03.9 Hypothyroidism, unspecified; K21.9 Gastro-esophageal reflux disease without esophagitis; Z85.528 Personal history of other malignant neoplasm of kidney
CPT/HCPCS: 75710; 80048; 82948; 85025; 85610; 85730; 86850; 86900; 86901; J0330; J0690; J1170; J1644; J2250; J2270; J2370; J2405; J2720; J3010; J3370; J7120

== ENCOUNTER → 2017-08-03 | Outpatient (CLI) | payer MEDICARE ==
[~2017-08-03] MED LIST changes: -APIX5TAB PO; +ASPI-516 CHEW; -ASPI81CH CHEW; -BACT800T5 PO; -BACTOIN EACH NARE; -COLA100C PO; +COLA100C5 PO; -EMPA1TAB3 PO; +EZET10 PO; +PRIL20TA2 PO; -PROT40TA PO; +SULF1TAB23 PO; +TYLE325T PO; -ZETI10TA5 PO
--- NOTE | 2017-08-04 10:29 | EKG ---
Date Performed: 08/03/2017 Time Performed: 11:12:18 PTAGE: 72 years EKG: Sinus rhythm Wenckebach block RIGHT BUNDLE BRANCH BLOCK PREVIOUS TRACING : 05/05/2017 06.30 Compared to the previous tracing Wenckebach block pre sent DOCTOR: Adrián Buchanan Interpretating Date/Time 08/04/2017 10:26:56
== END ==
LOC: HCAV 10:55
DX: N52.9 Male erectile dysfunction, unspecified (principal); I45.10 Unspecified right bundle-branch block
CPT/HCPCS: 93005

== ENCOUNTER 2017-08-21 13:05 | Emergency (ER) | payer MEDICARE ==
[~2017-08-21] VITALS: Ht 167.6 cm; Wt 99.0 kg
[2017-08-21 13:11] VITALS: BP 132/61; PULSE 76; RESP 16; TEMP 97.9; O2SAT 96
[2017-08-21] MEDS ORDERED: FLEE10EN RECTAL (13:42)
[2017-08-21] MEDS ORDERED: LACT10SO PO (13:42)
[2017-08-21] MEDS ORDERED: MAGNSOL2 PO (13:42)
--- NOTE | 2017-08-21 13:42 | PD ---
HPI Chief Complaint: Complaint Time Seen by Provider: 13:17 Travel History International Travel<30 days: No Contact w/Intl Traveler<30days: No Traveled to known affect area: No History of Present Illness HPI Patient is a 72 year old male who recently had penile implant surgery, discharged from the hospital Tuesday, who comes in for multiple reasons. He states his sherman catheter bag is leaking urine. He says that because it is taped to his left leg, his penis is rubbing against the site and he can't figure out how to move it to the right leg. He says he is not having any issues with the surgical site. He has an appointment with his urologist next week for follow up. He also complains of constipation. He says he has not had a real bowel movement since the surgery on . He says he has passed small hard stools, but nothing substantial. He denies nausea or vomiting. He denies any abdominal pain. He denies fever or chills. 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) Cardiac Catheterization: Yes Cardiovascular Problems: Yes ([place], [place]) High Cholesterol: Yes Chest Pain: Yes Congestive Heart Failure: Yes Cerebrovascular Accident: No Coronary Artery Disease: Yes Diabetes: Yes Diminished Hearing: No Endocrine: Yes Gastrointestinal Disorders: Yes (reflux) Genitourinary: No Hepatitis: No Hiatal Hernia: No Hypertension: Yes Immune Disorder: No Musculoskeletal: Yes (hx of neck surgery c5-c6 removed) Neurologic: No Psychiatric: No Reproductive: No Respiratory: No Migraines: No Myocardial Infarction: Yes (x 1) Radiation Therapy: No Seizures: No Sleep Apnea: Yes Thyroid Disease: Yes (HYPOTYROID) Past Surgical History Abdominal Surgery: Yes (RENAL CELLS CARCINOMA TO KIDNEYS ) AICD: No Arteriovenous Shunt: No Body Medical Devices: x1 cardiac stent Cardiac Surgery: Yes (5 vessel cardiac by-pass with 1 stent) Coronary Artery Bypass Graft: Yes (x 5 vessels) Coronary Stent: Yes (x 1) Ear Surgery: No Eye Surgery: Yes (deuce cataract removal with lens implants) Insulin Pump: No Joint Replacement: No Pacemaker: No Tonsillectomy: Yes Other Surgery: Yes Social History Alcohol Use: Yes ("NOT OFTEN") Tobacco Use: No (former -quit 47 yrs ago smoked cigs) Substance Use: No Allergies-Medications (Allergen,Severity, Reaction): Coded Allergies: No Known Allergies (Verified Adverse Reaction, Unknown, 08/21/17) Reported Meds & Prescriptions Reported Meds & Active Scripts Active Reported Tylenol (Acetaminophen) 325 Mg Tab 650 Mg PO Q6H PRN Sulfamethoxazole-Trimethoprim 800-160 Mg Tab 1 Tab PO DAILY Prilosec (Omeprazole Magnesium) 20 Mg Tab 1 Tab PO DAILY Novolog Inj (Insulin Aspart) 1,000 Unit/10 Ml Vial 0 SQ DIRECTED Sliding Scale as directed. Lantus Solostar Pen Inj (Insulin Glargine) 300 Unit/3 Ml Pen 40 Units SQ DAILY Colace (Docusate Sodium) 100 Mg Capsule 1 Cap PO DAILY Ondansetron Odt 8 Mg Tab 8 Mg SL Q8H PRN Multiple Vitamin 1 Tab 1 Tab PO DAILY Furosemide 20 Mg Tab 20 Mg PO BID Gabapentin 300 Mg Cap 300 Mg PO HS Lisinopril 10 Mg Tab 10 Mg PO HS Isosorbide Mononitrate ER (Isosorbide Mononitrate) 30 Mg Bony 30 Mg PO DAILY Flomax (Tamsulosin HCl) 0.4 Mg Cap 0.4 Mg PO HS Amlodipine (Amlodipine Besylate) 10 Mg Tab 10 Mg PO DAILY Zetia (Ezetimibe) 10 Mg Tab 10 Mg PO HS Levothyroxine (Levothyroxine Sodium) 75 Mcg Tab 75 Mcg PO DAILY Aspirin 81 Mg Chew 81 Mg CHEW DAILY Review of Systems Except as stated in HPI: all other systems reviewed are Neg General / Constitutional: No: Fever, Chills HENT: No: Headaches, Lightheadedness Cardiovascular: No: Chest Pain or Discomfort Respiratory: No: Shortness of Breath Gastrointestinal: Positive: Constipation, No: Nausea, Vomiting, Abdominal Pain Genitourinary: No: Dysuria, Discharge Skin: No Rash, No Change in Pigmentation Neurologic: No: Weakness, Dizziness Physical Exam Narrative GENERAL: Awake and alert, in no acute distress. SKIN: Focused skin assessment warm/dry. HEAD: Atraumatic. Normocephalic. EYES: Pupils equal and round. No scleral icterus. ENT: Mucous membranes pink and moist. NECK: Trachea midline. No JVD. CARDIOVASCULAR: Regular rate and rhythm. No murmur appreciated. RESPIRATORY: No accessory muscle use. Clear to auscultation. Breath sounds equal bilaterally. GASTROINTESTINAL: Abdomen soft, non-tender, nondistended. : Sherman catheter in place, draining urine appropriately. MUSCULOSKELETAL: No obvious deformities. No clubbing. No cyanosis. No edema. NEUROLOGICAL: Awake and alert. No obvious cranial nerve deficits. Motor grossly within normal limits. Normal speech. PSYCHIATRIC: Appropriate mood and affect; insight and judgment normal. Data Data Last Documented VS Vital Signs Date Time Temp Pulse Resp B/P (MAP) Pulse Ox O2 Delivery O2 Flow Rate FiO2 08/21/17 13:11 97.9 76 16 132/61 (84) 96 MDM Medical Decision Making Medical Screen Exam Complete: Yes Emergency Medical Condition: Yes Differential Diagnosis catheter malfunction vs constipation vs obstipation Narrative Course Patient is a 72 year old male who comes in complaining of constipation and issues with his sherman catheter. Exam shows no acute abnormalities. Patient offered medication here to force him to have a bowel movement, however, he would prefer prescriptions to take medications at home. Given a leg bag and sherman taped to his opposite leg. Advised to follow up with his doctor as scheduled. Advised to return at any time for any worsening symptoms. Diagnosis Primary Impression: Constipation Qualified Codes: K59.03 - Drug induced constipation Additional Impression: Sherman catheter problem Qualified Codes: T83.9XXA - Unspecified complication of genitourinary prosthetic device, implant and graft, initial encounter Patient Instructions: Constipation (ED), Sherman Catheter Placement and Care (ED) , General Instructions Additional Instructions: Try to cut back on your pain medicine, this may help with the constipation. Take the laxatives until you are able to have a bowel movement. Increase your water intake. Follow up with your doctors. Return to the ED as needed for any worsening symptoms. Scripts Bisacodyl Enema (Fleet Bisacodyl Enema) 10 Mg/37 Ml Enem 37 ML RECTAL DAILY Y for CONSTIPATION, #1 BOTTLE 0 Refills Prov: Hazel Velázquez MD 08/21/17 Magnesium Citrate Liq (Magnesium Citrate Liq) 300 Ml Liq 300 ML PO ONCE, #1 BOTTLE 0 Refills Prov: Hazel Velázquez MD 08/21/17 Lactulose Liq (Lactulose Liq) 10 Gm/15 Ml Soln 30 ML PO Q6H Y for CONSTIPATION for 3 Days, #360 ML 0 Refills Prov: Hazel Velázquez MD 08/21/17 Disposition: 01 DISCHARGE HOME Condition: Stable Hazel Velázquez MD Aug 21, 2017 13:42
== END 2017-08-21 14:36 | disposition home or self-care (01) ==
LOC: PHED 13:05
DX: K59.00 Constipation, unspecified (principal); T83.9XXA Unspecified complication of genitourinary prosthetic device, implant and graft, initial encounter; I11.0 Hypertensive heart disease with heart failure; I50.9 Heart failure, unspecified; E78.00 Pure hypercholesterolemia, unspecified; E11.9 Type 2 diabetes mellitus without complications; I25.10 Atherosclerotic heart disease of native coronary artery without angina pectoris; K21.9 Gastro-esophageal reflux disease without esophagitis; I25.2 Old myocardial infarction
CPT/HCPCS: 99283

== ENCOUNTER 2017-08-24 13:53 | Emergency (ER) | payer MEDICARE ==
[~2017-08-24] VITALS: Ht 167.6 cm; Wt 101.0 kg
[~2017-08-24 13:53] MED LIST changes: +FLEE10EN RECTAL; +LACT10SO PO; +MAGNSOL2 PO
[2017-08-24 14:06] VITALS: BP 154/69; PULSE 64; RESP 16; TEMP 99; O2SAT 96
--- NOTE | 2017-08-24 15:03 | PD ---
HPI Chief Complaint: Complaint Time Seen by Provider: 15:00 Travel History International Travel<30 days: No Contact w/Intl Traveler<30days: No Traveled to known affect area: No History of Present Illness HPI 72-year-old male patient who had a penile implant done last week by his urologist in [place], had taken out his own catheter per urology instructions today at 11 AM, and he states since that he has not been able to urinate, is only dribbling, and states that he has significant urinary urgency. He denies any fevers, or any other symptoms. He had talked to his urologist and was told to come to the ER to get a Matos catheter done. 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) Cardiac Catheterization: Yes Cardiovascular Problems: Yes (htn on meds, [place] with one stent, 5 vessels) High Cholesterol: Yes Chest Pain: Yes Congestive Heart Failure: Yes Cerebrovascular Accident: No Coronary Artery Disease: Yes Diabetes: Yes (type 2) Diminished Hearing: No Endocrine: Yes Gastrointestinal Disorders: Yes (reflux) Genitourinary: No Hepatitis: No Hiatal Hernia: No Hypertension: Yes Immune Disorder: No Musculoskeletal: Yes (hx of neck surgery c5-c6 removed) Neurologic: No Psychiatric: No Reproductive: No Respiratory: No Migraines: No Myocardial Infarction: Yes (x 1) Radiation Therapy: No Seizures: No Sleep Apnea: Yes Thyroid Disease: Yes (HYPOTYROID) Past Surgical History Abdominal Surgery: Yes (RENAL CELLS CARCINOMA TO KIDNEYS ) AICD: No Arteriovenous Shunt: No Body Medical Devices: x1 cardiac stent Cardiac Surgery: Yes (5 vessel cardiac by-pass with 1 stent) Coronary Artery Bypass Graft: Yes (x 5 vessels) Coronary Stent: Yes (x 1) Ear Surgery: No Eye Surgery: Yes (deuce cataract removal with lens implants) Insulin Pump: No Joint Replacement: No Pacemaker: No Tonsillectomy: Yes Other Surgery: Yes Social History Alcohol Use: Yes ("NOT OFTEN") Tobacco Use: No (former -quit 47 yrs ago smoked cigs) Substance Use: No Allergies-Medications (Allergen,Severity, Reaction): Coded Allergies: No Known Allergies (Verified Adverse Reaction, Unknown, 08/24/17) Reported Meds & Prescriptions Reported Meds & Active Scripts Active Fleet Bisacodyl Enema (Bisacodyl) 10 Mg/37 Ml Enem 37 Ml RECTAL DAILY PRN Reported Tylenol (Acetaminophen) 325 Mg Tab 650 Mg PO Q6H PRN Prilosec (Omeprazole Magnesium) 20 Mg Tab 1 Tab PO DAILY Novolog Inj (Insulin Aspart) 1,000 Unit/10 Ml Vial 0 SQ DIRECTED Sliding Scale as directed. Lantus Solostar Pen Inj (Insulin Glargine) 300 Unit/3 Ml Pen 40 Units SQ DAILY Colace (Docusate Sodium) 100 Mg Capsule 1 Cap PO DAILY Ondansetron Odt 8 Mg Tab 8 Mg SL Q8H PRN Multiple Vitamin 1 Tab 1 Tab PO DAILY Furosemide 20 Mg Tab 20 Mg PO BID Gabapentin 300 Mg Cap 300 Mg PO HS Lisinopril 10 Mg Tab 10 Mg PO HS Isosorbide Mononitrate ER (Isosorbide Mononitrate) 30 Mg Bony 30 Mg PO DAILY Flomax (Tamsulosin HCl) 0.4 Mg Cap 0.4 Mg PO HS Amlodipine (Amlodipine Besylate) 10 Mg Tab 10 Mg PO DAILY Zetia (Ezetimibe) 10 Mg Tab 10 Mg PO HS Levothyroxine (Levothyroxine Sodium) 75 Mcg Tab 75 Mcg PO DAILY Aspirin 81 Mg Chew 81 Mg CHEW DAILY Review of Systems Except as stated in HPI: all other systems reviewed are Neg Physical Exam Narrative GENERAL: Well-nourished, well-developed well-developed elderly white male in mild distress patient. SKIN: Focused skin assessment warm/dry. HEAD: Normocephalic. EYES: No scleral icterus. No injection or drainage. NECK: Supple, trachea midline. No JVD or lymphadenopathy. CARDIOVASCULAR: Regular rate and rhythm without murmurs, gallops, or rubs. RESPIRATORY: Breath sounds equal bilaterally. No accessory muscle use. GASTROINTESTINAL: Abdomen soft, non-tender, moderately distended. GENITOURINARY: Circumcised. Testes descended bilaterally without evidence of rotation. Tissues were significantly edematous in general but incision site appears clean, dry, intact with sutures in place. MUSCULOSKELETAL: No cyanosis, or edema. BACK: Nontender without obvious deformity. No CVA tenderness. Data Data Last Documented VS Vital Signs Date Time Temp Pulse Resp B/P (MAP) Pulse Ox O2 Delivery O2 Flow Rate FiO2 08/24/17 14:06 99.0 64 16 154/69 (97) 96 Orders Orders Urinary Catheter Insert/Apply (08/24/17 14:55) Ed Discharge Order (08/24/17 15:32) MDM Medical Decision Making Medical Screen Exam Complete: Yes Emergency Medical Condition: Yes Medical Record Reviewed: Yes Differential Diagnosis Urinary outflow obstruction Narrative Course Matos catheter was placed in the ER draining 800 cc of urine. Patient is feeling improved. At this point, my plan would be to release him with follow- up to his urologist. Return for any worsening in symptoms as needed. The plan has been discussed with him and he states understanding. Diagnosis Primary Impression: Urinary outflow obstruction Disposition: 01 DISCHARGE HOME Condition: Stable Imelda Thomas MD Aug 24, 2017 15:03
== END 2017-08-24 16:06 | disposition home or self-care (01) ==
LOC: PHED 13:53
DX: N13.8 Other obstructive and reflux uropathy (principal); I10 Essential (primary) hypertension; E78.00 Pure hypercholesterolemia, unspecified; I11.0 Hypertensive heart disease with heart failure; I50.9 Heart failure, unspecified; K21.9 Gastro-esophageal reflux disease without esophagitis; E11.9 Type 2 diabetes mellitus without complications; I25.10 Atherosclerotic heart disease of native coronary artery without angina pectoris; I21.9 Acute myocardial infarction, unspecified
CPT/HCPCS: 51702